=== PATIENT | female | born 1995 | race American Indian/Alaskan Native ===

== ENCOUNTER 2018-12-26 10:06 | Emergency (ER) | payer SELFPAY ==
[2018-12-26 10:16] VITALS: BP 126/61
--- NOTE | 2018-12-26 11:11 | Emergency Department Report ---
Minor Respiratory - HPI Chief Complaint: Upper Respiratory Infection Stated Complaint: SINUS INFECTION Time Seen by Provider: 12/26/18 11:06 Duration: 3 Days Pain Location: Facial, Throat, Ear, Chest Severity: mild Minor Respiratory: Yes Rhinorrhea (yellow/brown mucus when she blows her nose), Yes Sore Throat, Yes Able to Tolerate Fluids, Yes Ear Pain (congested clogged feeling), Yes Cough, Yes Fever (chills, none objectively), No Sick Contacts, No Hemoptysis, No Chest Pain, No Shortness of Breath ED Review of Systems ROS: Stated complaint: SINUS INFECTION Other details as noted in HPI Comment: All other systems reviewed and negative Eyes: eye discharge ED Past Medical Hx - Past Medical History Previous Medical History?: No - Surgical History Past Surgical History?: No - Social History Smoking Status: Never Smoker Substance Use Type: Marijuana - Medications Home Medications: Home Medications Medication Instructions Recorded Confirmed Last Taken Type ALBUTEROL Inhaler (OR & NICU) 2 puff IH QID PRN #1 inhalation 12/26/18 Unknown Rx [ProAir HFA Inhaler] Amoxicillin/Potassium Clav 1 each PO BID #14 tablet 12/26/18 Unknown Rx [Augmentin 875-125 Tablet] Fluticasone [Flonase] 1 spray NS QDAY #1 bottle 12/26/18 Unknown Rx predniSONE [Deltasone] 20 mg PO QDAY #5 tab 12/26/18 Unknown Rx traMADol [Ultram] 50 mg PO Q6HR PRN #10 tablet 12/26/18 Unknown Rx Minor Respiratory Exam - Exam General: Vital signs noted. No distress. Alert and acting appropriately. HEENT: Yes Moist Mucous Membranes, Yes Frontal Tenderness, No Pharyngeal Erythema, No Pharyngeal Exudates, No Rhinorrhea, No Conjuctival Injection, No Maxillary Tenderness Ear: Neither TM Bulge, Neither TM Erythema, Neither EAC Pain, Neither EAC Discharge Neck: Yes Supple, No Adenopathy Lungs: Yes Good Air Exchange, Yes Cough, No Wheezes, No Ronchi, No Stridor, No Labored Respirations, No Retractions, No Use of Accessory Muscles, No Other Abnormal Lung Sounds Heart: Yes Regular, No Murmur Abdomen: Yes Normal Bowel Sounds, No Tenderness, No Peritoneal Signs Skin: No Rash, No Edema Neurologic: Alert and oriented, no deficits. Musculoskeletal: Unremarkable. ED Course Vital Signs 12/26/18 10:12 Temperature 97.9 F Pulse Rate 101 H Respiratory 16 Rate Blood Pressure 126/61 O2 Sat by Pulse 85 Oximetry ED Medical Decision Making - Medical Decision Making Patient clinically has an early sinus infection. Patient restart Augmentin and this symptomatic relief will be discharged home. Critical care attestation.: If time is entered above; I have spent that time in minutes in the direct care of this critically ill patient, excluding procedure time. ED Disposition Clinical Impression: Acute sinusitis Qualifiers: Sinusitis location: unspecified location Recurrence: non-recurrent Qualified Code(s): J01.90 - Acute sinusitis, unspecified Disposition: DC-01 TO HOME OR SELFCARE Is pt being admited?: No Does the pt Need Aspirin: No Condition: Stable Instructions: Sinusitis (ED) Referrals: PRIMARY CARE, [Primary Care Provider] - 3-5 Days Time of Disposition: 11:11
== END 2018-12-26 11:38 | disposition home or self-care (01) ==
LOC: ED 10:06
DX: J01.90 Acute sinusitis, unspecified (principal); F12.10 Cannabis abuse, uncomplicated
CPT/HCPCS: 99282

== ENCOUNTER 2019-05-17 11:19 | Emergency (ER) | payer SELFPAY ==
[2019-05-17 11:24] VITALS: BP 112/62
--- NOTE | 2019-05-17 11:24 | Emergency Department Report ---
Blank Doc - Documentation Documentation: This is a 24-year-old female that presents with frontal sinus pressure and cough with rhinnorrhea. This initial assessment/diagnostic orders/clinical plan/treatment(s) is/are subject to change based on patient's health status, clinical progression and re- assessment by fellow clinical providers in the ED. Further treatment and workup at subsequent clinical providers discretion. Patient/guardians urged not to elope from the ED as their condition may be serious if not clinically assessed and managed. Initial orders include: 1- Patient sent to [facility] for further evaluation and treatment 2- xray
--- NOTE | 2019-05-17 11:57 | XRay Report ---
CHEST 2 VIEWS INDICATION / CLINICAL INFORMATION: cough. COMPARISON: None available. FINDINGS: SUPPORT DEVICES: None. HEART / MEDIASTINUM: No significant abnormality. LUNGS / PLEURA: No significant pulmonary or pleural abnormality. No pneumothorax. ADDITIONAL FINDINGS: No significant additional findings. IMPRESSION: 1. No acute findings. Signer Name: Primo Girard MD Signed: 05/17/2019 11:52 AM Workstation Name: [id number]
--- NOTE | 2019-05-17 12:17 | Emergency Department Report ---
Minor Respiratory - HPI Chief Complaint: Upper Respiratory Infection Stated Complaint: ALLERGIES Time Seen by Provider: 05/17/19 11:23 Duration: 3 Days Pain Location: Nose Severity: moderate Minor Respiratory: Yes Rhinorrhea, Yes Able to Tolerate Fluids, No Sore Throat, No Ear Pain, No Cough, No Sick Contacts, No Hemoptysis, No Chest Pain, No Shortness of Breath, No Fever Other History: This is a 24-year-old female presents ED complaining of runny nose yellow discharge with some facial pain 4 days. Patient denies fever, chills, cough nausea vomiting or abdominal pain. He denies trauma fall injuries to the face ED Review of Systems ROS: Stated complaint: ALLERGIES Other details as noted in HPI Comment: All other systems reviewed and negative ED Past Medical Hx - Past Medical History Previous Medical History?: Yes Additional medical history: SINUSITIS - Surgical History Past Surgical History?: No - Social History Smoking Status: Current Every Day Smoker Substance Use Type: Alcohol - Medications Home Medications: Home Medications Medication Instructions Recorded Confirmed Last Taken Type ALBUTEROL Inhaler (OR & NICU) 2 puff IH QID PRN #1 inhalation 12/26/18 Unknown Rx [ProAir HFA Inhaler] predniSONE [Deltasone] 20 mg PO QDAY #5 tab 12/26/18 Unknown Rx traMADol [Ultram] 50 mg PO Q6HR PRN #10 tablet 12/26/18 Unknown Rx Amoxicillin/Potassium Clav 1 each PO BID #14 tablet 05/17/19 Unknown Rx [Augmentin 875-125 Tablet] Fluticasone [Flonase] 1 spray NS QDAY #1 bottle 05/17/19 Unknown Rx Loratadine [Claritin] 10 mg PO DAILY #10 tablet 05/17/19 Unknown Rx Minor Respiratory Exam - Exam General: Vital signs noted. No distress. Alert and acting appropriately. HEENT: Yes Moist Mucous Membranes, Yes Frontal Tenderness, Yes Maxillary Tenderness, No Pharyngeal Erythema, No Pharyngeal Exudates, No Rhinorrhea, No Conjuctival Injection Ear: Neither TM Bulge, Neither TM Erythema, Neither EAC Pain, Neither EAC Discharge Neck: Yes Supple, No Adenopathy Lungs: Yes Good Air Exchange, No Wheezes, No Ronchi, No Stridor, No Cough, No Labored Respirations, No Retractions, No Use of Accessory Muscles, No Other Abnormal Lung Sounds Heart: Yes Regular, No Murmur Abdomen: Yes Normal Bowel Sounds, No Tenderness, No Peritoneal Signs Skin: No Rash, No Edema Neurologic: Alert and oriented, no deficits. Musculoskeletal: Unremarkable. ED Course Vital Signs 05/17/19 11:23 Temperature 98.1 F Pulse Rate 93 H Respiratory 16 Rate Blood Pressure 112/62 O2 Sat by Pulse 100 Oximetry ED Medical Decision Making - Radiology Data Radiology results: report reviewed, image reviewed Referring Physician: DELFINO WALDROP Patient Name: ASIF ACKERMAN Date of : 1995 Sex: Female Report Date: 2019-05-17 Report Status: Finalized Findings [facility] [address] [place] [address] XRay Report Signed Patient: ASIF ACKERMAN MR#: [id number] : 1995 Acct:[id number] INDICATION / CLINICAL INFORMATION: cough. COMPARISON: None available. FINDINGS: SUPPORT DEVICES: None. HEART / MEDIASTINUM: No significant abnormality. LUNGS / PLEURA: No significant pulmonary or pleural abnormality. No pneumothorax. ADDITIONAL FINDINGS: No significant additional findings. IMPRESSION: 1. No acute findings. Signer Name: Primo Girard MD Signed: 05/17/2019 11:52 AM Workstation Name: [id number] Transcribed By: GATO Dictated By: Prmio Girard MD Electronically Authenticated By: Primo Girard MD Signed Date/Time: 05/17/19 1152 - Medical Decision Making 24-year-old female presents with acute sinusitis. She is in no acute or respiratory distress. Discuss follow-up with primary Care physician. Vital signs are normal patient is in no acute distress. Critical care attestation.: If time is entered above; I have spent that time in minutes in the direct care of this critically ill patient, excluding procedure time. ED Disposition Clinical Impression: Acute sinusitis Disposition: DC-01 TO HOME OR SELFCARE Is pt being admited?: No Does the pt Need Aspirin: No Condition: Stable Instructions: Acute Bacterial Rhinosinusitis (ED), Sinusitis (ED) Additional Instructions: Make sure to follow up with the primary care physician as discussed. Take all your medications as you've been prescribed. If you have any worsening symptoms or develop new symptoms please return to ED immediately. Prescriptions: Amoxicillin/Potassium Clav [Augmentin 875-125 Tablet] 1 each PO BID #14 tablet Loratadine [Claritin] 10 mg PO DAILY #10 tablet Fluticasone [Flonase] 1 spray NS QDAY #1 bottle Referrals: RABIA CALERO MD [Primary Care Provider] - 3-[address] [facility] [Outside] - 3-5 Days [facility] [Outside] - 3-5 Days Forms: Work/School Release Form(ED) Time of Disposition: 12:26
== END 2019-05-17 12:50 | disposition home or self-care (01) ==
LOC: ED 11:19
DX: J01.10 Acute frontal sinusitis, unspecified (principal); F17.200 Nicotine dependence, unspecified, uncomplicated; Z79.899 Other long term (current) drug therapy
CPT/HCPCS: 71046; 99283

== ENCOUNTER 2019-05-30 11:23 | Emergency (ER) | payer OTHER ==
[2019-05-30 11:34] VITALS: BP 108/59
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
[2019-05-30] MEDS ORDERED: IBUPROFEN PO ONE (12:17)
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
== END 2019-05-30 12:33 | disposition home or self-care (01) ==
LOC: ED 11:23
DX: S46.811A Strain of other muscles, fascia and tendons at shoulder and upper arm level, right arm, initial encounter (principal); F12.10 Cannabis abuse, uncomplicated; Z79.899 Other long term (current) drug therapy; V89.2XXA Person injured in unspecified motor-vehicle accident, traffic, initial encounter; Y93.89 Activity, other specified; Y92.488 Other paved roadways as the place of occurrence of the external cause; Y99.8 Other external cause status
CPT/HCPCS: 99282

== ENCOUNTER 2020-08-20 17:07 | Emergency (ER) | payer SELFPAY | END 2020-08-20 19:00 | disposition left against medical advice (07) | LOC: ED 17:07 | DX: R42 Dizziness and giddiness (principal); R09.89 Other specified symptoms and signs involving the circulatory and respiratory systems; Z53.21 Procedure and treatment not carried out due to patient leaving prior to being seen by health care provider ==